=== PATIENT | male | born 2000 | race Two or more races ===

== ENCOUNTER 2023-05-07 09:05 | Outpatient (RCR) | payer OTHER, SELFPAY | END 2023-06-06 10:36 | disposition home or self-care (01) | LOC: HO.WCC 09:05 | PROVIDERS: Visit Provider Surgery | DX: S91.302A Unspecified open wound, left foot, initial encounter (principal) | CPT/HCPCS: 11042; 99212 ==

== ENCOUNTER 2025-03-22 21:47 | Emergency (ER) | payer OTHER, SELFPAY ==
[2025-03-22 22:30] VITALS: BP 135/79; PULSE 69; RESP 18; TEMP 36.8; O2SAT 98; BMI 21.5
[2025-03-22 22:57] LABS: Appearance Urine Clear; Color Urine Yellow; Glucose Urine UA Negative (Negative); Leukocyte Esterase Urine Negative (Negative); Nitrite Urine Negative (Negative); PH 6.5 (5.0-9.0); Specific Gravity - Urine <= 1.005 (1.005-1.025); Urine Blood Negative (Negative); Urine Ketones Negative (Negative); Urine Protein Negative (Neg-Trace)
[2025-03-23 03:00] LABS: CT PCR NOT DETECTED (Not Detect.); NG PCR NOT DETECTED (Not Detect.)
--- NOTE | 2025-03-23 04:28 | PC.NURSE ---
Pt awaiting to be seen by provider. Warm blank given.
--- NOTE | 2025-03-23 04:29 | PC.NURSE ---
pt resting in stretcher on cell phone. no sign of distress.
--- NOTE | 2025-03-23 04:59 | ED.MALEGU ---
HPI - Male Genitourinary General Chief complaint: Urogenital-Male Stated complaint: groin area discomfort Time Seen by Provider: 03/23/25 04:59 History of Present Illness ED Provider: Khadar DISLA Narrative: The patient is a 24-year-old male who says that during the last week he has had intermittent pain in his left testicle. The episodes of pain are quite brief, less than a minute. They can come a few times an hour. They do not seem to be associated with any particular activities. Today he went to work and he felt that working might have exacerbated his pain and so he came to the hospital. He has had no penile discharge. No dysuria. No back pain or flank pain. He does not think he sustained any injury that would have caused these pains. He is here with his girlfriend. She is asymptomatic. Related Data Previous Rx's ?Medication ?Instructions ?Recorded acetaminophen 500 mg capsule 1,000 mg (2 x 500 mg) PO Q8H PRN 03/23/25 fever or pain #14 caps ibuprofen 400 mg tablet 400 mg PO Q6H PRN pain #14 tabs 03/23/25 Allergies Allergy/AdvReac Type Severity Reaction Status Date / Time No Known Allergies Allergy Verified 03/22/25 22:32 Review of Systems Review of Systems: Yes all other systems are reviewed and are negative PMFSH Social History Social History Smoked in Last 30 Days: No Use of substances other than those prescribed or required for medical reasons: No Advance Directives: No Advance Directives Information Provided: Yes Do you have a plan to hurt others: No Plan Physical Exam Vital Signs: Vital Signs: Last Vital Signs Temp 97.7 F 03/23/25 05:37 Pulse 68 03/23/25 05:37 Resp 16 03/23/25 05:37 BP 137/63 03/23/25 05:37 Pulse Ox 95 03/23/25 05:37 O2 Del Method Room Air 03/23/25 05:37 BMI result Body Mass Index 21.5 Const: Other: The patient is a slim, looking 24-year-old who is awake and alert does not appear in any distress in any way. He does not appear ill or uncomfortable in any way. He looks entirely well. Orientation/consciousness: patient oriented x3 HEENT: Other: face is symmetrical, mucous membranes moist. Eyes: General: appearance normal, both eyes and all related structures Neck: Neck: Yes normal visual inspection and Yes full ROM Resp: Effort & Inspection: normal respiratory effort Auscultation: clear to auscultation bilaterally Cardio: Rate: regular rate Rhythm: regular rhythm Heart sounds: S1 normal heart sound present and S2 normal heart sound present GI: Other: Abdomen is flat, soft, nontender : Other: the patient is an uncircumcised male with normal external genitalia. There is no penile discharge. No abnormality to the foreskin or the head of the penis. Scrotum appears entirely normal. Cremaster reflexes are intact bilaterally. There is no testicular tenderness or abnormality on palpation. No hernias present in either inguinal canal. Skin: Other: Skin is dry and unremarkable General skin exam: no rashes or lesions noted Neuro: General: patient oriented x3, gait normal, tone normal, moves all extremities, no focal motor deficits and CN's II-XI intact bilaterally Extrem: Other: no peripheral edema Medical Decision Making Medical Decision Making MDM Narrative: the for the patient appears to be in ordinarily healthy and athletic 24-year-old reports 1 week of intermittent left testicular discomfort. Episodes of discomfort last at most 1-2 minutes. The patient was not experiencing any discomfort at the time that I evaluated him and he looks entirely well. His testicular exam is normal. He Has no complaint of dysuria or penile discharge. he has a normal urinalysis. Urine testing for GC and chlamydia is negative. I do not think that his history is suggestive of torsion or intermittent torsion. His physical exam is certainly not consistent with torsion currently. I do not appreciate any hernia. I think there would be little utility in obtaining an ultrasound. The patient will be reassured. Perhaps this is a musculoskeletal pain. I think the patient may be reassured and referred to Urology for a 2nd opinion. He is also encouraged to try to get primary care doctor. he was advised if he has any worsening of pain and particularly if he has any sustained pain he needs to return to emergency room immediately. Lab Data Labs: Lab Results 03/22/25 Range/Units 22:49 Urine Color Yellow Urine Appearance Clear Urine pH 6.5 (5.0-9.0) Ur Specific [place] <= 1.005 (1.005-1.025) Urine Protein Negative (Neg-Trace) mg/dL Urine Glucose (UA) Negative (Negative) mg/dL Urine Ketones Negative (Negative) mg/dL Urine Blood Negative (Negative) Urine Nitrite Negative (Negative) Ur Leukocyte Esterase Negative (Negative) Chlam trachomat DNA PCR NOT DETECTED (Not Detect.) N.gonorrhoeae DNA (PCR) NOT DETECTED (Not Detect.) Discharge Plan Discharge Clinical Impression: Left testicular pain Patient Disposition: Home, Self-Care Instructions: Testicle Pain (ED) Additional Instructions: Currently your physical exam is normal and very reassuring. My suspicion for an acutely dangerous process is very low. You may use acetaminophen and ibuprofen as needed for pain. Please contact the urology office later this morning for a follow up appointment to discuss these symptoms further. Avoid any activities that might seemed to exacerbate or bring on episodes of the pain. If at any point you have pain which is persistent or particularly severe please return to the emergency room for additional evaluation. Prescriptions: New ibuprofen 400 mg tablet 400 mg PO Q6H PRN (Reason: pain) Qty: 14 0RF acetaminophen 500 mg capsule 1,000 mg PO Q8H PRN (Reason: fever or pain) Qty: 14 0RF Referrals: [facility] [Provider Group] (intermittent left testicular pain) Stand Alone Forms: Work/School Release Interventions: ED Discharge Assessment Last Done: 03/23/25 05:37 Discharge Date/Time: 03/23/25 05:37 Print Language: [place]
[2025-03-23 05:31] VITALS: BP 137/63; PULSE 68; RESP 16; TEMP 36.5; O2SAT 95
--- NOTE | 2025-03-23 05:35 | PC.NURSE ---
reviewed discharge instructions with pt. pt verbalized understanding, no sign of distress, information given for primary provider
[2025-03-23 05:37] VITALS: BP 137/63; PULSE 68; RESP 16; TEMP 36.5; O2SAT 95
== END 2025-03-23 05:37 | disposition home or self-care (01) ==
PROVIDERS: Emergency Provider Emergency Medicine
DX: N50.812 Left testicular pain (principal)
CPT/HCPCS: 81003; 87491; 87591; 99283; 99284

== ENCOUNTER 2025-03-29 13:34 | Outpatient (REF) | payer OTHER, SELFPAY ==
--- NOTE | ~2025-03-29 | US_ITS ---
EXAMINATION: US SCROTUM CLINICAL INFORMATION: Scrotal/testicular pain. COMPARISON: None available. TECHNIQUE: A sonogram of the scrotum was performed assessing disla-scale appearance and color Doppler flow. FINDINGS: There is no scrotal skin thickening. There is symmetrical blood flow on color Doppler. RIGHT: Right testicle measures long axis 4.1 cm, volume 14 mL. No focal testicular parenchymal lesions are visualized Right epididymal head is normal in size. No right hydrocele or varicocele is seen. LEFT: Left testicle measures long axis 4.1 cm, volume 13 mL. No focal testicular parenchymal lesions are visualized. Left epididymal head is normal in size. No left hydrocele or varicocele is seen. US/US scrotum IMPRESSION: Unremarkable scrotal ultrasound. Electronically signed by: Cosme Moura MD 03/29/2025 02:05 PM EDT
== END 2025-03-29 13:35 | disposition home or self-care (01) ==
LOC: HO.US 13:34
PROVIDERS: Visit Provider Physician Assistant
DX: N50.819 Testicular pain, unspecified (principal)
CPT/HCPCS: 76870

== ENCOUNTER → 2025-03-29 13:49 | Outpatient (BNV) | payer OTHER, SELFPAY | PROVIDERS: Visit Provider Radiology Diagnostic Radiology | DX: N50.82 Scrotal pain (principal) | CPT/HCPCS: 76870 ==

== ENCOUNTER 2025-05-16 09:09 | Outpatient (AMB) | payer OTHER, SELFPAY ==
--- NOTE | 2025-05-16 09:15 | MHC.OFFVIS ---
Intake Visit Reasons: intermittent testicular pain Intake Note: New patient presents today for initial visit for intermittent testicular pain Urology Medication:none Blood Thinner:none Antibiotic Allergies:none Allergies No Known Allergies Allergy (Verified 05/16/25 09:17) Medication List - Last Reconciled 05/16/25 by Lucas Henry MD acetaminophen 1,000 mg (2 x 500 mg) PO Q8H PRN ibuprofen 400 mg PO Q6H PRN HPI Comments Details: 05/16/2025-Armando is a 24-year-old male who is here as a new patient evaluation for intermittent testicular pain. The patient was seen in the emergency room on 03/23/2025 for left testicular pain I reviewed the emergency medicine providers note. The patient reported pain at work and presented to the ED. At time of emergency room evaluation there was no pain and exam was normal. The patient had a scrotal ultrasound on 03/29/2025 which was normal. Patient states he does not have a PCP. History of Present Illness - The patient is a 24-year-old male presenting with intermittent testicular pain. - The pain was initially severe enough to warrant an emergency room visit on 03/23/25, but no abnormalities were found during the examination. - A subsequent scrotal ultrasound on 03/29/25 confirmed normal findings with no abnormalities detected. - The patient describes the current sensation as occasional jolts rather than continuous pain, indicating a decrease in severity. - Anxiety is noted as a potential factor influencing the patient's perception of pain. Results - Scrotal ultrasound on 03/29/25: Normal findings, good blood flow, no abnormalities - Urine tests for Chlamydia and gonorrhea: Negative Plan - Advise wearing supportive underwear to help manage testicular discomfort. - Suggest using Tylenol or Motrin for pain relief as needed. - Recommend applying ice packs with a cloth barrier for 15 minutes on and 30 minutes off. - Facilitate referral to a primary care provider for comprehensive health management. Review of Systems Const All systems reviewed & are unremarkable except as noted in HPI and below Reports no additional complaints Eyes Reports no additional complaints ENT Reports no additional complaints Card Reports no additional complaints Resp Reports no additional complaints GI Reports no additional complaints Reports as per HPI Musc Reports no additional complaints Skin/Breast Reports system reviewed and no additional complaints, except as documented Neuro Reports no additional complaints Psych Reports no additional complaints Endo Reports no additional complaints Edwar/Lymph Reports no additional complaints Aller/Immun Reports no additional complaints Physical Exam Const General: healthy appearing, no acute distress and well developed Orientation/consciousness: patient oriented x3 HEENT Head: Yes normocephalic and Yes atraumatic Eyes Conjunctivae: conjunctivae normal Neck Neck: Yes normal visual inspection Chest Chest palpation & inspection: normal inspection of the chest Resp Effort & Inspection: normal respiratory effort GI Inspection: Yes normal to inspection Other: Genital exam normal: Testicles nontender Penis: normal penis and uncircumcised Scrotum: scrotum normal Neuro General: patient oriented x3 Extrem General: No pedal edema Psych Appearance: grossly normal Affect: normal affect Results Reviewed Results Reviewed: Date of Service: 03/29/25 SCROTUM CLINICAL INFORMATION: Scrotal/testicular pain. COMPARISON: None available. TECHNIQUE: A sonogram of the scrotum was performed assessing disla-scale appearance and color Doppler flow. FINDINGS: There is no scrotal skin thickening. There is symmetrical blood flow on color Doppler. RIGHT: Right testicle measures long axis 4.1 cm, volume 14 mL. No focal testicular parenchymal lesions are visualized Right epididymal head is normal in size. No right hydrocele or varicocele is seen. LEFT: Left testicle measures long axis 4.1 cm, volume 13 mL. No focal testicular parenchymal lesions are visualized. Left epididymal head is normal in size. No left hydrocele or varicocele is seen. IMPRESSION: Unremarkable scrotal ultrasound. Assessment & Plan Assessment & Plan (1) Testicular pain: Code(s): N50.819 - Testicular pain, unspecified Category: Medical Plan Plan - Advise wearing supportive underwear to help manage testicular discomfort. - Suggest using Tylenol or Motrin for pain relief as needed. - Recommend applying ice packs with a cloth barrier for 15 minutes on and 30 minutes off. - Facilitate referral to a primary care provider for comprehensive health management. Patient Instructions: The patient had an opportunity to ask questions regarding treatment plan. The patient expressed understanding and agreement with the above treatment plan. The patient is aware they should contact our office by phone for worsening of their current condition or the appearance of new symptoms. Compliance is encouraged with any medications and followup testing that is ordered. It is a privilege to be allowed the opportunity to participate in the urologic care of your patient. If you have any questions or concerns regarding treatment for the above conditions please do not hesitate to contact me. The office telephone contact is [phone]. This note is constructed in part using voice recognition software. While every effort has been made to ensure accuracy african history professor errors may have been included. Yours sincerely, Lucas Henry MD Scribe Plan - Not visible on output: Patient was informed and verbally consented to the use of an ambient scribe for clinic note documentation during this visit. Coding Level of Care Code New Pt Level 3 (91926) Diagnoses Testicular pain N50.819
== END 2025-05-16 09:43 | disposition home or self-care (01) ==
LOC: HO.HUSH 09:10
PROVIDERS: Visit Provider Urology
DX: N50.819 Testicular pain, unspecified (principal)
CPT/HCPCS: 99203

== ENCOUNTER → 2025-05-16 09:09 | Outpatient (BNVA) | payer OTHER, SELFPAY | PROVIDERS: Visit Provider Urology | DX: N50.819 Testicular pain, unspecified (principal) | CPT/HCPCS: 81003; 99202 ==